=== PATIENT | female | born 1985 | race Caucasian/White ===

== ENCOUNTER 2016-08-27 20:42 | Emergency (ER) | payer OTHER ==
--- NOTE | ~2016-08-27 | ER ---
PATIENT'S NAME: BRITTANI EPPS [facility] AGE: 30 Y [address] ROOM: [place] [address] LOCATION: ED ADMIT DATE: 08/27/2016 ER/Outpatient Report DISCHARGE DATE: 08/27/2016 FAMILY PHYSICIAN: Janet Reyes MD ATTENDING PHYSICIAN: Brett Mancia Date of Arrival: 2042 hours. Date of Evaluation: 2115 hours. HISTORY OF PRESENT ILLNESS: This is a 30-year-old female, currently 13 weeks' , in with complaint of fever, runny nose, and productive cough. She was seen for this illness yesterday and was started on amoxicillin, but she has continued to run fever today. PAST MEDICAL HISTORY: She is currently 13 weeks' . She has no chronic medical problems. REVIEW OF SYSTEMS: Otherwise negative. SOCIAL HISTORY: She quit smoking 4 days ago. PHYSICAL EXAMINATION: GENERAL: Alert, overweight female, in no acute distress. VITAL SIGNS: Stable. SKIN: Warm and dry. Color is normal. HEAD, EARS, EYES, NOSE, AND THROAT: Normal. NECK: Supple. HEART: Regular rate and rhythm without murmur. LUNGS: She had coarse rhonchi audible bilaterally. ABDOMEN: Soft and nontender. EXTREMITIES: Normal. NEUROLOGIC: Normal. LABORATORY DATA: Influenza swab was negative. CBC revealed a slight elevated white blood cell count of 12,000 consistent with early . ASSESSMENT: Bronchitis. PLAN: Continue amoxicillin. Follow up with her regular doctor as needed. PATIENT'S NAME: BRITTANI EPPS [facility] AGE: 30 Y [address] ROOM: [place] [address] LOCATION: ED ADMIT DATE: 08/27/2016 ER/Outpatient Report DISCHARGE DATE: 08/27/2016 FAMILY PHYSICIAN: Janet Reyes MD ATTENDING PHYSICIAN: Brett Mancia BRETT MANCIA MD JDB/modl /[id number] d: 08/28/16804 t: 09/25/16 0956, OUTPATIENT REPORT
[~2016-08-27 20:42] MED LIST: APNO TOP; DERMOPLAST SPRA56 GM TOP; FEOSOL325 MG PO; LANSINOH7 GM TOP; MOTRIN800 MG PO; PERCOCET 5-3251 EACH PO; PRENATAL 1+1)(P1 TAB PO; SURFAK240 MG PO; TUCKS1 EACH TOP; TUMS200 MG PO; TYLENOL325 MG PO
[2016-08-27 21:19] LABS: BASOPHIL % 0.3 %; EOSINOPHIL # 0.5 K/uL (0.0-0.5); HEMATOCRIT 40.5 % (33.0-46.0); HEMOGLOBIN 13.9 g/dL (11.0-15.0); IMMATURE GRANULOCYTE # 0.1 K/uL (0.0-0.3); IMMATURE GRANULOCYTE % 0.5 %; LYMPHOCYTE % 16.3 %; MCH 30.3 pg (27.0-34.0); MCHC 34.3 gm/dL (32.0-36.5); MCV 88.2 fl (83.0-98.0); MONOCYTE # 0.7 K/uL (0.0-1.0); MONOCYTE % 6.2 %; MPV 10.8 fl (9.4-12.4); NEUTROPHIL # (ANC) 8.7 K/uL (1.8-7.8); NEUTROPHIL % 72.7 %; NRBC % 0 /100WBC (0-0.00); PLATELET COUNT 261 K/uL (150-450); RBC 4.59 M/uL (3.50-5.00); RDW-CV 12.7 % (11.9-14.6)
== END 2016-08-27 22:01 | disposition disaster alternative care site (69) ==
LOC: GMED 20:42
PROVIDERS: Emergency Medicine
DX: O99.512 Diseases of the respiratory system complicating pregnancy, second trimester (principal); J40 Bronchitis, not specified as acute or chronic; Z3A.15 15 weeks gestation of pregnancy

== ENCOUNTER 2016-09-09 13:54 | Emergency (ER) | payer OTHER ==
--- NOTE | ~2016-09-09 | ER ---
PATIENT'S NAME: BRITTANI EPPS [facility] AGE: 30 Y [address] ROOM: [place] [address] LOCATION: [facility] ADMIT DATE: 09/09/2016 ER/Outpatient Report DISCHARGE DATE: 09/09/2016 FAMILY PHYSICIAN: Janet Reyes MD ATTENDING PHYSICIAN: Michelle Rey Time of Arrival: 1354 hours. Time of Evaluation: 1405 hours. CHIEF COMPLAINT: Nausea, vomiting, and abdominal cramping. HISTORY OF PRESENT ILLNESS: This is a 30-year-old female, who presents to the ER, states she developed nausea, vomiting, and diarrhea last night. She states that she is approximately 17 weeks . She does not believe she has been running any fevers with this. She states that she has had no blood in her stool or vomit. She states that no one else at home is ill at this time. She states she has had urinary frequency with this, but no dysuria. She has not noticed any vaginal bleeding or unusual vaginal discharge. She states she has an appointment for her OB on Sunday. ALLERGIES: AMOXICILLIN. MEDICATIONS: vitamins. She takes Tylenol p.r.n. PAST MEDICAL HISTORY: Right ankle surgery. She had a recent history of bronchitis. She is currently 17 weeks . SOCIAL HISTORY: She smokes 1 pack a day for the last 13 years. Drinks alcohol socially before . REVIEW OF SYSTEMS: A 10-point review of systems was completed and was negative with the exception of those discussed in the HPI. PHYSICAL EXAMINATION: VITAL SIGNS: Height 5 feet and 10 inches stated, weight 88.5 kg taken, blood pressure is 127/71, pulse 96, respirations 16, temperature 97.6 degrees tympanically, and saturations 97% on room air. Thee Coma Score is 15. heart tones were 163. PATIENT'S NAME: BRITTANI EPPS [facility] AGE: 30 Y [address] ROOM: [place] [address] LOCATION: [facility] ADMIT DATE: 09/09/2016 ER/Outpatient Report DISCHARGE DATE: 09/09/2016 FAMILY PHYSICIAN: Janet Reyes MD ATTENDING PHYSICIAN: Michelle Rey GENERAL: Alert, calm, well-developed female, in no obvious distress. HEENT: Head: Normocephalic. Eyes: Pupils are equal and reactive to light. She does display moist mucous membranes. LUNGS: Clear to auscultation bilaterally. No wheezes or crackles. Normal respiratory effort. HEART: Regular rate and rhythm. No lifts, thrills, or murmurs. ABDOMEN: Soft. She has generalized tenderness in all 4 quadrants. No guarding. No rebound tenderness. She does have good bowel sounds throughout. Fundus is below the umbilicus. EXTREMITIES: No clubbing or cyanosis. She does have full range of motion of all limbs. SKIN: Warm, dry, and intact. LABORATORY DATA: CBC: White count is 12.0, hemoglobin is 11.9, platelets 233, and ANC is 9.6. Urinalysis is negative for any infection. There is no blood in her urine. CMS: Potassium is 3.4, sodium is 139, creatinine is 0.4, BUN 9, estimated GFR is greater than 60. IMPRESSION: 1. Gastroenteritis. 2. Intrauterine . ASSESSMENT AND PLAN: We did start an IV here in the emergency room. We did give her a liter and a half of IV fluids along with 4 mg of Zofran. The patient did rest comfortably her entire stay. She had no emesis and no diarrhea during her stay here in the emergency room. We also gave her a dose of Tylenol p.o., which she did keep down as well. The patient states she is feeling much better. We will dismiss her to home with a prescription for Zofran to use as directed. She needs to do small amounts of fluids frequently. Continue to monitor symptoms and follow up with primary care physician this week for her followup care. The patient understands and agrees with care. TIFFANIE GUZMAN PA-C FOR MD AYLIN BUITRAGO/irvin /[id number] d: t: 09/15/16 1234, OUTPATIENT REPORT
[2016-09-09 14:34] LABS: BILIRUBIN URINE NEGATIVE (NEGATIVE); BLOOD URINE NEGATIVE /UL (NEGATIVE); COLOR URINE YELLOW (YELLOW); GLUCOSE URINE NEGATIVE (NEGATIVE); KETONE URINE NEGATIVE (NEGATIVE); LEUKOCYTES URINE NEGATIVE /UL (NEGATIVE); NITRITE URINE NEGATIVE (NEGATIVE); PROTEIN URINE NEGATIVE (NEGATIVE); TURBIDITY URINE CLEAR (CLEAR); UROBILINOGEN URINE NORMAL (NORMAL)
[2016-09-09 14:42] LABS: BASOPHIL % 0.2 %; EOSINOPHIL # 0.3 K/uL (0.0-0.5); EOSINOPHIL % 2.3 %; HEMATOCRIT 35.4 % (33.0-46.0); HEMOGLOBIN 11.9 g/dL (11.0-15.0); IMMATURE GRANULOCYTE # 0.1 K/uL (0.0-0.3); IMMATURE GRANULOCYTE % 0.8 %; LYMPHOCYTE # 1.6 K/uL (0.8-4.0); LYMPHOCYTE % 13.3 %; MCH 30.1 pg (27.0-34.0); MCHC 33.6 gm/dL (32.0-36.5); MCV 89.4 fl (83.0-98.0); MONOCYTE # 0.4 K/uL (0.0-1.0); MONOCYTE % 3.4 %; MPV 10.7 fl (9.4-12.4); NEUTROPHIL # (ANC) 9.6 K/uL (1.8-7.8); NRBC % 0 /100WBC (0-0.00); PLATELET COUNT 233 K/uL (150-450); RBC 3.96 M/uL (3.50-5.00); RDW-CV 12.4 % (11.9-14.6)
[2016-09-09 14:58] LABS: ALBUMIN 3.1 gm/dL (3.5-5.0); ALK PHOS 64 IU/L (33-138); ALT 27 IU/L (12-78); ANION GAP 13.4 (10.0-19.0); AST 17 IU/L (10-40); BLOOD UREA NITROGEN 9 mg/dL (6-24); CALCIUM 8.5 mg/dL (8.5-10.5); CHLORIDE 105 mMol/L (96-110); CO2 24 mMol/L (22-32); CREATININE 0.4 mg/dL (0.5-1.1); ESTIMATED GFR (MDRD EQUATION) > 60; POTASSIUM 3.4 mMol/L (3.7-5.1); SODIUM 139 mMol/L (135-145); TOTAL BILIRUBIN 0.3 mg/dL (0.0-1.5); TOTAL PROTEIN 6.7 g/dL (6.0-8.4)
== END 2016-09-09 16:16 | disposition disaster alternative care site (69) ==
LOC: GMED 13:54
PROVIDERS: Physician Assistant Medical
DX: O99.612 Diseases of the digestive system complicating pregnancy, second trimester (principal); K52.9 Noninfective gastroenteritis and colitis, unspecified; O99.332 Smoking (tobacco) complicating pregnancy, second trimester; F17.210 Nicotine dependence, cigarettes, uncomplicated; Z3A.17 17 weeks gestation of pregnancy; Z88.1 Allergy status to other antibiotic agents; Z98.890 Other specified postprocedural states
CPT/HCPCS: J2405; J7030; J7040

== ENCOUNTER → 2016-10-03 | Outpatient (CLI) | payer OTHER | END | disposition disaster alternative care site (69) | LOC: GRAD 13:38 | DX: Z34.81 Encounter for supervision of other normal pregnancy, first trimester (principal); O32.1XX0 Maternal care for breech presentation, not applicable or unspecified; Z3A.19 19 weeks gestation of pregnancy ==

== ENCOUNTER 2017-01-19 16:48 | Inpatient (IN) | payer OTHER ==
[~2017-01-19] VITALS: Ht 162.6 cm; Wt 90.0 kg
--- NOTE | ~2017-01-19 | OR ---
PATIENT'S NAME: BRITTANI WATSON [facility] AGE: 31 Y [address] ROOM: [address] [address] LOCATION: GOBS ADMIT DATE: 01/20/2017 OR/Procedure Report DISCHARGE DATE: FAMILY PHYSICIAN: Janet Reyes MD ATTENDING PHYSICIAN: Janet Reyes SURGEON: Valentina Colunga MD CNA CAREGIVER: Lyn Beavers MD, Apparel Designer 3. DATE OF PROCEDURE: 01/20/2017 PROCEDURE PERFORMED: Normal spontaneous vaginal delivery. PREOPERATIVE DIAGNOSIS: A 35w6d intrauterine in active pre-term labor. POSTOPERATIVE DIAGNOSIS: A 35w6d intrauterine with delivery of viable male infant at 0520 hours weighing 5 pounds 10 ounces with Apgars of 8 at 1 minute and 9 at 5 minutes. ANESTHESIA: Epidural. ESTIMATED BLOOD LOSS: 300. INDICATIONS: This is a 31-year-old, G3, P1 who presented at 35 and 5 weeks gestation by ultrasound with an EDC of 02/19/2017 complains of regular uterine contractions. She had been seen in the clinic and was noted to be dilated at 5 cm. Her course was uncomplicated. She did have elevated hyperglycemia, but not failing screening tests. She monitored this with diet and Accu-Cheks. labs include blood type O positive with negative A/B screen, rubella immune, hep B surface antigen negative, HIV negative, GBS unknown. She presented in the afternoon of 01/19/2017 and noted to have contractions every 5-8 minutes on the monitor. At that time, her cervix was 5 cm, 70% effaced, and negative at 1 station. heart tracing was reactive and reassuring. She remained normotensive throughout the course of her labor after her initial Pitocin dose in which her pressures dropped to 80 systolic and one other time that her pressure dropped to 80 systolic, but both recovered within 1-2 minutes. She was given a bolus of fluids with each of these drops. heart tracing remained reactive and reassuring during both of these very short blood pressure decreases. Slow progress was made initially and she remained at 8 cm for more than 1 hour. Pitocin was started and was slowly titrated up to achieve the maximum dose of 21 mcg per hour. Baby was ballotable on cervical exam and no artificial rupture membranes was performed. At approximately 0500 hours on 01/20/2017, the baby's head was firmly engaged and artificial rupture of membranes was performed with the return of clear fluid. At that time, her cervix was 9 cm, 90% effaced with the vertex at PATIENT'S NAME: BRITTANI WATSON [facility] AGE: 31 Y [address] ROOM: [place] [address] LOCATION: GOBS ADMIT DATE: 01/20/2017 OR/Procedure Report DISCHARGE DATE: FAMILY PHYSICIAN: Janet Reyes MD ATTENDING PHYSICIAN: Janet Reyes negative 1 station. She progressed to complete within 10 minutes and was allowed to push bringing the infant vertex to the perineum. DESCRIPTION OF PROCEDURE: The patient was noted to be complete and pushing, so was placed in the dorsal lithotomy position, prepped, and draped in the usual sterile fashion for vaginal delivery. The patient noted to have epidural anesthesia at this time. The patient was asked to push and the head delivered spontaneously in the ML position over an intact perineum. The oropharynx and nasopharynx were not suctioned on the perineum. No nuchal cord was found. The anterior shoulder delivered easily and the posterior shoulder followed. The remainder of the was easily delivered and oropharynx and nasopharynx again were not suctioned. The was noted to have a spontaneous cry and spontaneous movement of all 4 extremities. The cord was clamped x2 and cut and noted to have 2 arteries and 1 vein. The was passed to the NICU personnel who were in attendance. Cord blood and cord pH were obtained. The placenta delivered intact spontaneously and the uterus was not explored, 20 units of Pitocin was placed in the IV bag to firm the uterus. Examination of the cervix and vaginal vault did not reveal any lacerations. Examination of the perineum showed no lacerations. The patient tolerated this procedure well and recovered in L and D. Her infant was taken to the NICU due to gestational age. All sponge and needle counts were correct. Dr. Colunga was present for entire procedure. LYN BEAVERS MD RESIDENT FOR VALENTINA COLUNGA MD MR/modl /[id number] d: 01/20/17 0646 t: 01/25/17 1424, OPERATIVE SUMMARY
[2017-01-19 19:39] LABS: BASOPHIL # 0.1 K/uL (0.0-0.2); BASOPHIL % 0.3 %; EOSINOPHIL # 0.2 K/uL (0.0-0.5); EOSINOPHIL % 1.2 %; HEMATOCRIT 33.4 % (33.0-46.0); HEMOGLOBIN 11.5 g/dL (11.0-15.0); IMMATURE GRANULOCYTE # 0.2 K/uL (0.0-0.3); IMMATURE GRANULOCYTE % 1.1 %; LYMPHOCYTE # 2.9 K/uL (0.8-4.0); LYMPHOCYTE % 17.3 %; MCHC 34.4 gm/dL (32.0-36.5); MONOCYTE # 0.7 K/uL (0.0-1.0); MONOCYTE % 4.3 %; MPV 11.5 fl (9.4-12.4); NEUTROPHIL # (ANC) 12.9 K/uL (1.8-7.8); NEUTROPHIL % 75.8 %; NRBC % 0 /100WBC (0-0.00); PLATELET COUNT 271 K/uL (150-450); RBC 3.71 M/uL (3.50-5.50); RDW-CV 13.7 % (11.9-14.6)
[2017-01-20 06:16] LABS: PCO2 51 mmHg (35-45)
[2017-01-20 06:17] LABS: BICARBONATE 24.7 mmol/L (18.0-23.0); PO2 22 mmHg (80-90)
--- NOTE | 2017-01-20 17:47 | NUR ---
Last VS: T:97.9 P:94 R: 16 BP: 122/39 Pain ratin. Last pain med: Motrin @ 0801,Perc.1 tab @ 1503. Medicated at: Effective: Yes Breasts:soft , Nipples: intact Fundus:ff @ 1 f below Lochia:small rubra Epis/Perineum:intact Voiding well: yes. Significant event: Pt's breastpumping equipment in [place]. VSS. Pt. in [place] most of afternoon.
[2017-01-21 04:53] LABS: BASOPHIL % 0.3 %; EOSINOPHIL # 0.2 K/uL (0.0-0.5); EOSINOPHIL % 1.8 %; HEMOGLOBIN 9.7 g/dL (11.0-15.0); IMMATURE GRANULOCYTE # 0.1 K/uL (0.0-0.3); LYMPHOCYTE # 3.5 K/uL (0.8-4.0); LYMPHOCYTE % 28.9 %; MCH 31.3 pg (27.0-34.0); MCHC 34.6 gm/dL (32.0-36.5); MCV 90.3 fl (83.0-98.0); MONOCYTE # 0.8 K/uL (0.0-1.0); MONOCYTE % 6.5 %; MPV 10.8 fl (9.4-12.4); NEUTROPHIL # (ANC) 7.5 K/uL (1.8-7.8); NEUTROPHIL % 61.5 %; NRBC % 0 /100WBC (0-0.00); PLATELET COUNT 219 K/uL (150-450); RDW-CV 13.8 % (11.9-14.6); WBC 12.3 K/uL (4.0-11.0)
--- NOTE | 2017-01-21 05:25 | NUR ---
vss, fundus firm, 1 finger below umbilicus, small flow. pt took 1 percocet at 2353 and 1 motrin around 1900. pt soaked in tub last night. pt ambulates to NICU frequently. independent with cares.
--- NOTE | 2017-01-21 07:05 | NUR ---
D: Inntroduced myself to pt as her primary care for nurse for today. Patient dozing/sleeping. I: Asked patient to call me when I ready to awaken, so I can check her vital signs & assessment. R: Patient verbalizes understanding. Denies any needs or concerns at this time. P: Continue cares (baby in NICU, pt plans to go to see baby in NICU at 0800 for baby's feeding time.)
--- NOTE | 2017-01-21 13:48 | NUR ---
Last VS: T:98.0 P:96 R: 16 BP: 139/84 Pain ratin-5 Last pain med: Percocet Medicated at: 1321 Effective: Yes Breasts: , Nipples: INTACT Fundus: FIRM Lochia: SMALL Epis/Perineum: INTACT Voiding well: Y Significant event: *.UP AD EMMANUEL, WALKS TO NICU TO BREAST/BOTTLE-FEED. TOLERATES ACTIVITY WELL, HAS TAILBONE DISCOMFORT & UTERINE CRAMPS AT TIMES. LAST MOTRIN @ 9315.
[2017-01-22] MEDS ORDERED: MOTRIN800 MG PO (07:07)
[2017-01-22] MEDS ORDERED: SURFAK240 MG PO (07:07)
[2017-01-22] MEDS ORDERED: FEOSOL325 MG PO ×2 (07:08→07:09)
[2017-01-22] MEDS ORDERED: PERCOCET 5-3251 EACH PO (07:10)
--- NOTE | 2017-01-22 12:20 | NUR ---
Met mom at baby's bedside in the NICU. Introduced myself and explained my role with the CM department. Per mom, doctor said that Parvin may be able to discharge sometime this week depending on how he does. Mom will discharge from OB today. Explained to mom that she can room in with baby here or come and go between home and hospital as often as she needs. She has a 2 yr old at home. Instructed her to have her contact his HR department and/or insurance company to notify them of baby's . Provided her with a list of community resources. Also discussed signs and symptoms of post depression as mom has a history of depression. Provided her with reading material to refer to. Will continue to follow and offer supports while Parvin is in the NICU.
--- NOTE | 2017-01-22 17:39 | NUR ---
01/22/17 1730: Christy @ [id number],Eliana 0941. VSS.afebrile. Breastpumping in NICU. Home tonight. All Dismissal papers typed. Needs teaching.
== END 2017-01-22 20:50 | disposition disaster alternative care site (69) | DRG 775 ==
LOC: GOBS 16:48 → GOBM 16:48 → GOBS 16:51 → GOBM 16:55 → GOBS 01-20 02:30 → GOBM 01-20 02:30 → GOBS 01-20 02:31
PROVIDERS: ADMIT Family Medicine
PROC: 10907ZC Drainage of Amniotic Fluid, Therapeutic from Products of Conception, Via Natural or Artificial Opening (ICD-10-PCS; principal; 2017-01-20)
PROC: 10E0XZZ Delivery of Products of Conception, External Approach (ICD-10-PCS; principal; 2017-01-20)
DX: O60.14X0 Preterm labor third trimester with preterm delivery third trimester, not applicable or unspecified (principal); I95.9 Hypotension, unspecified; O75.89 Other specified complications of labor and delivery; Z3A.35 35 weeks gestation of pregnancy; Z37.0 Single live birth
CPT/HCPCS: J0690; J2001; J2405; J2590; J3010; J7030; J7120